=== PATIENT | female | born 1950 | race Caucasian/White ===

== ENCOUNTER 2017-10-25 20:04 | Emergency (ER) | payer MEDICARE, BC ==
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
[2017-10-25] MEDS: Bacitracin Oint 30 GM Tube TOP SCH (20:48)
== END 2017-10-25 20:55 | disposition home or self-care (01) ==
LOC: KA.ED 20:04
DX: T23.201A Burn of second degree of right hand, unspecified site, initial encounter (principal); T23.231A Burn of second degree of multiple right fingers (nail), not including thumb, initial encounter; F17.210 Nicotine dependence, cigarettes, uncomplicated; Z79.82 Long term (current) use of aspirin; Z79.899 Other long term (current) drug therapy; X10.2XXA Contact with fats and cooking oils, initial encounter; Y93.89 Activity, other specified; Y92.254 Theater (live) as the place of occurrence of the external cause
CPT/HCPCS: 99283